=== PATIENT | female | born 2000 | race Caucasian/White ===

== ENCOUNTER 2023-06-15 14:57 | Emergency (ER) | payer BC, SELFPAY ==
[2023-06-15 15:07] VITALS: BP 134/78
[2023-06-15 15:25] LABS: % Basophils 0.3 % (0-2); % Eosinophils 0.2 % (0-6); % Immature Granulocytes 0.4 % (0-0.5); % Monocytes 9.3 % (1.7-9.3); % Neutrophils 74.8 % (42.2-75.2); Absolute Lymphocytes 1.5 10^3/uL (1.2-3.4); Absolute Monocytes 0.9 10^3/uL (0.1-0.6); Absolute Neutrophils 7.4 10^3/uL (1.4-6.5); Hematocrit 37.2 % (37.0-47.0); Hemoglobin 13.2 g/dL (12.0-16.0); Mean Corp Hgb Conc. 35.5 g/dL (33.0-37.0); Mean Corpuscular Hgb 30.5 pg (27.0-31.0); Mean Corpuscular Volume 85.9 fL (81.0-99.0); Mean Platelet Volume 10.2 fL (7.4-10.4); Nucleated Red Blood Cells % 0 %; Platelet Count 241 10^3/uL (130-400); Red Blood Cell Count 4.33 10^6/uL (4.20-5.40); Red Cell Dist. Width 12.8 % (11.5-14.5); White Blood Cell Count 9.8 10^3/uL (4.8-10.8)
[2023-06-15 15:41] LABS: ALT (SGPT) 14 U/L (0-35); AST (SGOT) 18 U/L (14-36); Albumin 4.4 g/dl (3.5-5.0); Alkaline Phosphatase 50 U/L (38-126); Blood Urea Nitrogen 14 mg/dl (7-17); Calcium 9.1 mg/dl (8.4-10.2); Carbon Dioxide 26 mmol/L (22-30); Chloride 107 mmol/L (98-107); Glucose 96 mg/dl (70-99); Sodium 137 mmol/L (135-145); Total Bilirubin 0.8 mg/dl (0.2-1.3); Total Protein 7.1 g/dl (6.3-8.2); eGFR > 60.00
[2023-06-15 16:11] LABS: TSH Reflex To Free T4 0.94 uIU/ml (0.47-4.68)
--- NOTE | 2023-06-15 16:55 | ED.GENMED ---
History of Present Illness
General
Chief Complaint: Headache
Time Seen by Provider: 06/15/23 16:44
Travel History
Have you had any contact with someone who has COVID-19?: No
Do you have any symptoms of coronavirus? Fever > 100 degrees, chills, cough, shortness of breath, sore throat, loss of taste or smell, muscle aches, or headache?: No
History of Present Illness
History of Present Illness:
22-year-old female with no past medical history presents emergency department for evaluation of a headache and intermittent diplopia over the past several days. She has also had intermittent heart palpitations that occur randomly for the past
several months. Headache is currently minimal and she has no current diplopia. Denies any obvious provoking or palliating factors. Took ibuprofen without significant change. Denies any recent head trauma. Denies any photophobia or neck pain
Review of Systems
Review of Systems
Allergies reviewed?: Yes
All Other Systems: ROS reviewed and negative except as documented in HPI and ROS
Phy Exam
Physical Exam
Physical Exam:
GEN: Well appearing, NAD, WDWN
HEENT: Oral mucosa moist, no scleral icterus, no nasal congestion
Cardiac: Regular rate and rhythm
Lung: No respiratory distress, no tachypnea
MSK: No gross deformity or injuries
Skin: Good color, no pallor or jaundice, no rashes
Neuro: AO x3; CN II-XII grossly intact. BUE strength 5/5 in all alfred, sensation intact and symmetric. BLE strength 5/5 in all alfred, sensation intact and symmetric
Psych: Calm, cooperative
Course
Orders/Labs/Results
Orders:
Orders
06/15/23 15:09
EKG [Electrocardiogram (*1)] Urgent
Reason for Study: Palpitations
06/15/23 15:10
EKG- Treatment ONCE
06/15/23 15:17
Complete Blood Count/With Diff Urgent
Comprehensive Metabolic Panel Urgent
TSH Reflex To Free T4 Urgent
06/15/23 16:56
Ketorolac [Toradol] 30 mg IM NOW STA
Abnormal Lab Results
06/15/23
15:17
Absolute Neuts (auto) 7.4 H 10^3/uL
(1.4-6.5)
Absolute Monos (auto) 0.9 H 10^3/uL
(0.1-0.6)
Lymphocytes % 15.0 L %
(20.5-51.1)
06/15/23 15:17
06/15/23 15:17
Vital Signs
Initial and Last Documented VS:
Initial Vital Signs
Temp Pulse Resp BP Pulse Ox
99.0 F 74 18 134/78 100
06/15/23 15:07 06/15/23 15:07 06/15/23 15:07 06/15/23 15:07 06/15/23 15:07
Last Documented Vital Signs
Temp Pulse Resp BP Pulse Ox
99.0 F 74 18 134/78 100
06/15/23 15:07 06/15/23 15:07 06/15/23 15:07 06/15/23 15:07 06/15/23 15:07
MDM/Problems Addressed
MDM/Problems Addressed:
EKG independently interpreted by me shows normal sinus rhythm at a rate of 62 with a sinus arrhythmia, no ST changes concerning for ischemia, QTc of 369
Patient is neurologically intact, in regards to this headache is quite mild at this time I have no clinical concern for intracranial hemorrhage. Her diplopia is quite intermittent and there are no signs of extraocular motion deficit on exam thus I
do not feel there is any indication for imaging to evaluate for intracranial aneurysm. In regards to her palpitations she is not having any active symptoms thus I do not feel there is any indication for further cardiac workup. Labs are reassuring.
Recommend close outpatient primary care follow-up
*Critical Care Note
Total Time (30-74mins, 75-104mins- exclusive of procedures): Not Applicable
ED Attending Note
-
Portions of this chart may have been created with voice recognition software.� Occasional wrong word or��sound alike� substitutions may have occurred due to the inherent limitations of voice recognition software.
Discharge Plan
Departure
Patient Disposition: Home (Routine Discharge)
Date of Disposition: 06/15/23
Time of Disposition: 16:55
Patient with high blood pressure during this ER visit?: No
Discharge Problem:
Headache, Heart palpitations
Instructions: Headache, Adult (DC)
Prescriptions:
New
bsawryindq-[id number]-isco [Fioricet] 50-300-40 mg capsule
1 cap PO Q8H PRN (Reason: headache) Qty: 10 0RF
Interventions
Interventions:
*Risk Screen - Suicide Last Done: 06/15/23 15:07
*General Assessment Last Done: 06/15/23 15:07
*Neglect/Abuse Screening Last Done: 06/15/23 15:07
*ED COVID-19 Vaccine History Last Done: 06/15/23 15:07
*Nursing Disposition Last Done: 06/15/23 17:35
ED- Neurological Assessment Last Done: 06/15/23 16:20
Discharge Date and Time
Discharge Date/Time: 06/15/23 17:36
[2023-06-15] MEDS: TORADOL 30 MG IM (17:05)
== END 2023-06-15 17:36 | disposition home or self-care (01) ==
LOC: EMR 14:57
PROVIDERS: EMERGENCY PHYSICIAN Emergency Medicine
DX: R51.9 Headache, unspecified (principal); R00.2 Palpitations
CPT/HCPCS: 99284; 96372; 80053; 84443; 85025; 93005